=== PATIENT | female | born 1990 | race Caucasian/White ===

== ENCOUNTER 2025-01-24 18:26 | Emergency (ER) | payer BC, SELFPAY ==
--- NOTE | ~2025-01-24 | XR_ITS ---
XR wrist RT 2V Ordering provider: Ángela Beltran PA-C History: . fall, pain, deformity . Comparison: None. FINDINGS: BONES: Comminuted fracture of the distal right radius with posterior angulation. JOINT SPACES: Normal. SOFT TISSUES: Normal. IMPRESSION: Comminuted fracture of the distal radius Reviewed, dictated and finalized at location A.
[2025-01-24 18:27] VITALS: BP 113/91; PULSE 77; RESP 18; TEMP 36.6; O2SAT 98
--- NOTE | 2025-01-24 19:06 | ED.UPPEXIN ---
HPI - Extremity Injury (Upper) General Chief Complaint: Extremity Injury, Upper Stated Complaint: wrist fx Source: patient Mode of arrival: EMS Limitations: no limitations History of Present Illness HPI narrative: Patient is a 34-year-old female who presents the ED via EMS with report of right wrist pain. Patient reports she was attempting to pull open her garage door with a pull string when the string snapped and she fell backwards, attempting to catch herself with her right wrist. She complains of severe pain to her right wrist. Deformity noted. Placed in splint by EMS. Patient denies any other areas of pain. Denies R elbow or shoulder pain. Denies head injury or LOC. Denies any numbness or tingling. Related Data Allergies Allergy/AdvReac Type Severity Reaction Status Date / Time bacitracin (From Allergy Unknown Hives Verified 01/24/25 18:39 Polysporin(bacitracin base)) Penicillins Allergy Unknown Unknown Verified 01/24/25 18:39 polymyxin B (From Allergy Unknown Hives Verified 01/24/25 18:39 Polysporin(bacitracin base)) Review of Systems Review of Systems: All systems reviewed & are unremarkable except as noted in HPI. All systems reviewed & are unremarkable except as noted in HPI and below Exam Narrative: GENERAL: Uncomfortable appearing, well-nourished, non-toxic, in no acute distress. HEAD: Normocephalic, atraumatic. RESPIRATORY: Airway patent, respirations nonlabored. CARDIOVASCULAR: Regular rate and rhythm. Radial pulses strong and easily palpable. MUSCULOSKELETAL: Limited range of motion of right wrist due to pain. Able to wiggle fingers. Sensation intact. Capillary refill intact. Tenderness to palpation over distal radius region with swelling noted. No wounds. No tenderness over right elbow, right shoulder. SKIN: Warm, dry, normal color. NEURO: A&O X3. Speech clear. Cranial nerves II-XII grossly intact. Steady gait. No ataxic movements. PSYCHIATRIC: Appropriate mood and affect. Normal interaction. Course Vital Signs Vital signs: Vital Signs Temperature 97.8 F 01/24/25 18:27 Pulse Rate 77 01/24/25 18:27 Respiratory Rate 18 01/24/25 18:27 Blood Pressure 113/91 H 01/24/25 18:27 Pulse Oximetry 98 01/24/25 18:27 Oxygen Delivery Room Air 01/24/25 18:27 Temperature 97.8 F 01/24/25 18:27 Pulse Rate 77 01/24/25 18:27 Respiratory Rate 18 01/24/25 18:27 Blood Pressure 113/91 H 01/24/25 18:27 Pulse Oximetry 98 01/24/25 18:27 Oxygen Delivery Room Air 01/24/25 18:27 MDM - Extremity Injury (Upper) MDM Narrative Medical decision making narrative: Patient presented to ED status post ground level mechanical fall at home, FOOSH, pain to right wrist. Vital signs are stable upon arrival. Patient denies any other injuries. Denies any head injury or LOC. Patient?s injury is consistent with musculoskeletal etiology. No signs of neurologic or vascular compromise on physical examination. Compartments are soft without signs of compartment syndrome. XR of right wrist showing comminuted distal radius fracture. Pain is consistent with exam and injury. Patient is felt to be stable for discharge home and further outpatient management and treatment. Placed in a short-arm volar splint in the ED. Given sling for comfort and support. Advised to follow-up with orthopedics for further evaluation of fracture. Patient given prescription for pain medication. Discussed rice therapy, strict return precautions. She agrees with plan. Discharged in stable condition. Medical Records Attestation: I reviewed the patient's medical records. Imaging Data Attestation: I personally reviewed and interpreted this imaging study as follows: Radiologist's impression: ITS Impressions Wrist X-Ray 01/24/25 19:01 IMPRESSION: Comminuted fracture of the distal radius Discharge Plan Discharge Clinical Impression: Fall from ground level Fracture of distal end of radius Qualifiers: Encounter type: initial encounter Fracture type: closed Fracture morphology: Colles' Laterality: right Qualified Code(s): S52.531A - Colles' fracture of right radius, initial encounter for closed fracture Patient Disposition: Home, Self-Care Condition: Stable Instructions: Antibiotic Form, Wrist Fracture in Adults (ED), How to Use a Sling (ED), Splint Care (ED) Additional Instructions: You will need to follow-up with orthopedics for further evaluation of your fracture. Call office to make appointment. Wear splint until seen by orthopedics. Recommend frequent icing to wrist, elevation of wrist, Tylenol and ibuprofen as needed for pain. [place] as needed for more severe pain. Return to the ED if you experience worsening or severe pain, recurrent injury, severe swelling, numbness, or any other symptoms of concern. Patient Language: Maldivian Prescriptions: New hydrocodone-acetaminophen 5-325 mg tablet 1 tablet PO Q6H PRN (Reason: pain) Qty: 15 0RF Follow-up/Referrals: James Martinez MD [Physician] - (ORTHOPEDICS) UNKNOWN,DOCTOR [Primary Care Provider] - Time of Disposition: 20:23
--- OUTSIDE RECORDS SUMMARY | 2025-01-24 19:13 | XMS_ITS | Encounter Summary ---
Author Organization [facility] Address [address] [place], [place] [address] [address] Care Team Providers Care Guest Relations Receptionist Name Role Phone Mar Lane MD Primary Care Pr ovider Unavailable Reason for Visit * Reason Onset Date Comments General 05/21/2024 Encounter Details Date Type Department Care Team (Late st Contact Info) Description 05/21/2024 Telephone [facility] - Dermatology [address] [place] [address], [place] [id number] Dixon Ac MD [address] [place] [address] [address] [place] [address] General Social History Tobacco Use Types Packs/Day Years Used Date Smoking Tobacco: Never Smokeless Tobacco: Never Alcohol Use Standard Drinks/Week Comments Yes 0 (1 standard drink = 0.6 oz pur e alcohol) Sex and Gender Information Value Date Recorded Sex Assigned at Not on file Gender Identity Not on file Sexual Orientation Not on file documented as of this encounter Miscellaneous Notes * Telephone Encounter - Blue Diaz - 05/21/2024 3:19 PM CDT Current Provider: Osorio Reason for Call: pts member id was entered incorrectly which caused her insur to reject. Insur infohas now been updated.Pt has been sent to collections and the claim needs to be recalled. Invoice # [id number] Patient Call Back Number: [phone] documented in this encounter Plan of Treatment Not on file documented as of this encounter Visit Diagnoses Not on filedocumented in this encounter Care Teams Guest Relations Receptionist Relationship Specialty Start Date End Date Mar Lane MD PCP - General 12/01/22 documented as of this encounter
--- OUTSIDE RECORDS SUMMARY | 2025-01-24 19:13 | XMS_ITS | Patient Health Summary ---
Author Organization [facility] Address [address] [place] [address] Care Team Providers Care Acting Teacher Name Role Phone Mar Lane MD Primary Care Pr ovider Unavailable Note from [facility],non-owned Affiliates and Associated Physician Practices is amultiple site organization consisting of ambulatory clinics and hospital sitesin [place], [place], [place] and [place]. This disclosure is being madepursuant to the Care Everywhere program and may not contain all information available regarding this patient. Last updated 18.[facility] Allergies * Zpzhwbtt-Pmphbxcrbk-Mzqdftjpd(Rash) -Medium Criticality * Penicillins(Itching) Medications * Be aware that medications may not be up to date on this document. Alwaysverify current medications with the patient. * Multiple Vitamins-Minerals (MULTIVITAMIN GUMMIES WOMENS PO) Take by mouth once daily Active Problems Problem Noted Date Diagnosed Date Well woman exam with routine gynecological exam 03/20/2023 Family history of melanoma 12/16/2022 Other viral warts 12/16/2022 Seborrheic keratosis 12/16/2022 Solar lentiginosis 12/16/2022 Melanocytic nevi of trunk 12/16/2022 Anemia 12/28/2021 Low serum vitamin B12 12/28/2021 Lymphadenopathy 03/17/2020 Social History Tobacco Use Types Packs/Day Years Used Date Smoking Tobacco: Never Smokeless Tobacco: Never Tobacco Cessation:Counseling Given: Not Answered Alcohol Use Standard Drinks/Week Comments Yes 0 (1 standard drink = 0.6 oz pur e alcohol) Sex and Gender Information Value Date Recorded Sex Assigned at Not on file Gender Identity Not on file Sexual Orientation Not on file Last Filed Vital Signs Vital Sign Reading Time Taken Comments Blood Pressure 121/82 03/20/2023 2:03 PM CDT Pulse - - Temperature - - Respiratory Rate - - Oxygen Saturation - - Inhaled Oxygen Concentration - - Weight 88.9 kg (196 lb) 03/20/2023 2:03 PM CDT Height 177.8 cm (5' 10 ) 03/20/2023 2:03 PM CDT Body Mass Index 28.12 03/20/2023 2:03 PM CDT Procedures * AR DESTRUCT BENIGN LESION, 1-14(Performed 12/19/2023) Performed for Other viral warts * PAP IMAGE-GUIDED W HPV(Performed 03/20/2023) Performed for Well woman exam with routine gynecological exam * HPV DETECTION HIGH RISK JOSE GUADALUPE(Performed 03/20/2023) Performed for Well woman exam with routine gynecological exam * AR DESTRUCT BENIGN LESION, 1-14(Performed 12/16/2022) Performed for Other viral warts Results * AR DESTRUCT BENIGN LESION, 1-14 (12/19/2023 4:28 PM CENTRAL COMMUNICATIONS SPECIALIST) Narrative Dixon Ac MD - 12/19/2023 4:28 PM CENTRAL COMMUNICATIONS SPECIALIST Dixon Ac MD 12/19/2023 4:28 PM Procedure: liquid nitrogen/cryotherapy Liquid nitrogen was applied with the spray cannister to the affected skin lesion(s). The expected reaction ranges from minimal changes to scabbing, crust, blistering, or swelling, which can be painful. Color changes different from the surrounding skin are expected and can be either honey processor or darker--this can sometimes take a long time to fully resolve, and in some cases, it may not ever fully look like the surrounding skin--there is a delicate balance between freezing hard enough for efficacy and such side effects that is different for different people. There is a small risk of infection similar to any time there is a break in the skin. Blister/wound care discussed, handout given. Return if lesions fail to fully resolve. Verbal consent obtained prior to any procedures being done. Dixon Ac MD PROCEDURE/MINOR SURG ICAL ORDERABLES * HPV DETECTION HIGH RISK JOSE GUADALUPE (03/20/2023 2:36 PM CDT) High Risk Human Papilloma Result Not detected Not detected 03/22/2023 2:40 PM CDT [facility] High Risk Human Papilloma Interp 03/22/2023 2:40 PM CDT [facility] Comment:High Risk Human Van lloma Virus was Not Detected. Pathology/Cytolo gy MISCELLANEOUS SAMPLES / Unknown 03/20/2023 2:36 PM CDT 03/21/2023 12:37 PM CDT Narrative [facility] - 03/22/2023 2:40 PM CDT Nucleic acid isolated from the specimen was analyzed with a nucleic acid amplification test (FDA approved Gen-Probe HPV Assay) to detect high risk human papilloma virus (Types: 16, 18, 31, 33, 35, 39, 45, 51, 52, 56, 58, 59, 66, and 68). The reference range is Not Detected . Comment: These test results should not be used as the sole basis for clinical assessment and treatment of patients. These results should always be correlated with other available data (cytology, histology, and clinical information). Emilia MCCOY [facility] - MICROBIOLOGY ORDERABLES Performing Organization Address City/State/[facility] Co de Phone Number [facility] [address] [phone] * PAP IMAGE-GUIDED W HPV (03/20/2023 2:36 PM CDT) Case Report Gynecologic Cytology Report Case: [id number] Authorizing Provider: Emilia Robin APRN-CNP Collected: 03/20/2023 02:36 PM Ordering Location: [facility] Obstetrics Received: 03/21/2023 12:37 PM [facility]cology [facility] Women[facility] First Screen: Iftikhar Davis Specimen: THINPREP - IMAGE GUIDED, Cervix/Endocervix 03/24/2023 1:16 PM CDT [facility] LMP 4-25-23 03/24/2023 1:16 PM CDT [facility] Menstrual Status None Applicable 10/2023 1:16 PM CDT [facility] Specimen Adequacy Satisfactory for evaluation, endocervical/trans formation zone component absent. 03/24/2023 1:16 PM CDT [facility] Categorization Negative for intraepithelial lesion or malignancy. 03/24/2023 1:16 PM CDT [facility] Interpretation INFORMATION SYSTEMS AUDITOR Negative for intraepithelial lesion or malignancy. 03/24/2023 1:16 PM CDT [facility] Pap Footnote The Pap Smear is a screening test. False positive and false negative results occur. Negative results do not preclude abnormalities, thus clinical correlation is required. This specimen was evaluated by the [employer] System along with an additional manual rescreening by a snipper and/or pathologist. 03/24/2023 1:16 PM CDT [facility] Embedded Images 1:16 PM CDT [facility] Pathology/Cytolo gy MISCELLANEOUS SAMPLES / Unknown 03/20/2023 2:36 PM CDT 03/21/2023 12:37 PM CDT Emilia Robin CREDIT OPERATIONS SPECIALIST-POWDERED SUGAR SUPERVISOR LAB - PATHOLOGY/CY TOLOGY ORDERABLES Performing Organization Address City/State/[facility] Co de Phone Number [facility] [address] [phone] * AR DESTRUCT BENIGN LESION, 1-14 (12/16/2022 1:48 PM CENTRAL COMMUNICATIONS SPECIALIST) Narrative Dixon Ac MD - 12/16/2022 1:48 PM CENTRAL COMMUNICATIONS SPECIALIST Dixon Ac MD 12/16/2022 1:48 PM Procedure: liquid nitrogen/cryotherapy Liquid nitrogen was applied with the spray cannister to the affected skin lesion(s). The expected reaction ranges from minimal changes to scabbing, crust, blistering, or swelling, which can be painful. Color changes different from the surrounding skin are expected and can be either honey processor or darker--this can sometimes take a long time to fully resolve, and in some cases, it may not ever fully look like the surrounding skin--there is a delicate balance between freezing hard enough for efficacy and such side effects that is different for different people. There is a small risk of infection similar to any time there is a break in the skin. Blister/wound care discussed, handout given. Return if lesions fail to fully resolve. Verbal consent obtained prior to any procedures being done. Dixon Ac MD PROCEDURE/MINOR SURG ICAL ORDERABLES Care Teams Acting Teacher Relationship Specialty Start Date End Date Devasenatst. francis hospitalMar dial MD PCP - General 12/01/22
--- OUTSIDE RECORDS SUMMARY | 2025-01-24 19:13 | XMS_ITS | Referral Summary ---
Author Organization [facility] Address [address] [place] [place] [address] Care Team Providers Care Drill Press Set Up Operator Name Role Phone Mar Lane MD Primary Care Pr ovider Unavailable Source Comments [facility],non-owned Affiliates and Associated Physician Practices is amultiple site organization consisting of ambulatory clinics and hospital sitesin [place], [place], [place] and [place]. This disclosure is being madepursuant to the Care Everywhere program and may not contain all information available regarding this patient. Last updated 18.[facility] [employer] Allergies Active Allergy Reactions Criticality Noted Date Comments Zmdpudpa-Agzrtswhhy-Fjiahvfos Rash Medium 2022 Penicillins Itching 12/16/2022 Medications * Be aware that medications may not be up to date on this document. Alwaysverify current medications with the patient. Medication Sig Dispensed Refills Start Date End Date Status Multiple Vitamins-Minerals (MULTIVITAMIN GUMMIES WOMENS PO) Take by mouth once daily Active Active Problems Problem Noted Date Diagnosed Date [...] Mass Index 28.12 03/20/2023 2:03 PM CDT Plan of Treatment Not on file Procedures Procedure Name Priority Date/Time Associated Diagnosis Comments HPV DETECTION HIGH RISK JOSE GUADALUPE Routine 03/20/2023 2:36 PM CDT Well woman exam with routine gynecological exam from Last 3 Months or Most Recently Relevant to Health Maintenance Results * HPV DETECTION HIGH RISK JOSE GUADALUPE (03/20/2023 2:36 PM CDT) High Risk Human Papilloma Result Not detected Not detected 03/22/2023 2:40 PM CDT [facility] High Risk Human Papilloma Interp 03/22/2023 2:40 PM CDT [facility] Comment:High Risk Human Van lloma Virus was Not Detected. Pathology/Cytolo gy MISCELLANEOUS SAMPLES / Unknown 03/20/2023 2:36 PM CDT 03/21/2023 12:37 PM CDT Narrative [facility] - 03/22/2023 2:40 PM CDT [...] data (cytology, histology, and clinical information). Emilia Robin FLOORING MACHINE OPERATOR-OYSTER WASHER LAB - MICROBIOLOGY ORDERABLES [facility] [address] [place], [place] [address] [phone] from Last 3 Months or Most Recently Relevant to Health Maintenance Care Teams Drill Press Set Up Operator Relationship Specialty Start Date End Date Mar Lane MD PCP - General 12/01/22
--- OUTSIDE RECORDS SUMMARY | 2025-01-24 19:13 | XMS_ITS | Clinical Summary ---
Author Organization [facility] Address [address] [place] [address] Care Team Providers Care Patrol Captain Name Role Phone Mar Lane MD Primary Care Pr ovider Unavailable Source Comments [facility],non-owned Affiliates and Associated Physician Practices is amultiple site organization consisting of ambulatory clinics and hospital sitesin [place], [place], [place] and [place]. This disclosure is being madepursuant to the Care Everywhere program and may not contain all information available regarding this patient. Last updated 18.[facility] [employer] Allergies Active Allergy Reactions Criticality Noted Date Comments Hembtqrh-Wgejzixepm-Cswfzdziz Rash Medium 2022 Penicillins Itching 12/16/2022 Medications [...] Low serum vitamin B12 12/28/2021 Lymphadenopathy 03/17/2020 Family History Medical History Relation Name Comments Cancer - Skin, Melanoma Father Cancer - Skin, Non Melanoma Maternal Grandfather None Known Mother Relation Name Status Comments Father Alive Maternal Grandfather Maternal Grandmother Mother Alive Paternal Grandfather Paternal Grandmother Social History Tobacco Use Types Packs/Day Years [...] 03/20/2023 2:03 PM CDT Plan of Treatment Health Maintenance Due Date Last Done Comments HIV SCREENING 2003 HEPATITIS C SCREENING 07/23/2006 DTAP/TDAP/TD VACCINES (1 - Tdap) 2007 HEPATITIS B VACCINE (1 of 3 - 19+ 3-dose series) 2007 COVID-19 VACCINE ( - 2023-2 5 season) 2024 03/12/2021, 02/16/2021 INFLUENZA VACCINE (#1) 2024 DEPRESSION SCREENING 11/13/2024 PAP with HPV 03/20/2028 03/20/2023 ZOSTER VACCINE (1 of 2) 2038 HIB VACCINE Aged Out No longer eligi ble based on patient's age to complete this topic HPV VACCINE Aged Out No longer eligi ble based on patient's age to complete this topic MENINGOCOCCAL (Group B) VACCINE SHARED DECISION-MAKING Aged Out No longer eligible based on patient's age to complete this topic MENINGOCOCCAL GROUPS A/C/Y/W VACCINE Aged Out No longer eligible b ased on patient's age to complete this topic PNEUMOCOCCAL VACCINE Aged Out No long er eligible based on patient's age to complete this topic Procedures Procedure Name Priority Date/Time Associated Diagnosis [...] (cytology, histology, and clinical information). Emilia Robin RELIGION INSTRUCTOR-ART CONSERVATOR LAB - MICROBIOLOGY ORDERABLES [facility] [address] [phone] from Last 3 Months or Most Recently Relevant to Health Maintenance Care Teams Patrol Captain Relationship Specialty Start Date End Date DevasenatMar pacheco MD PCP - General 12/01/22
--- OUTSIDE RECORDS SUMMARY | 2025-01-24 19:13 | XMS_ITS | Encounter Summary ---
Author Organization [facility] Address [address] [place] [address] Care Team Providers Care Mini Bar Attendant Name Role Phone Twan Ospina MD Primary Care Provider [phone] Encounter Details Date Type Department Care Team (Latest Contact Info) Description 01/20/2025 [facility]oot[facility] Message [facility] [place] [address] [address] [place] [address] Twan Ospina MD [facility] [address] Beta nela question Social History Tobacco Use Types Packs/Day Years Used Date Smoking Tobacco: Never Smokeless Tobacco: Never Comments:Counseled by Dr. Delphine mcdonough. Alcohol Use Standard Drinks/Week Comments Yes 6.7 (1 standard drink = 0.6 oz p ure alcohol) PHQ-2 Answer Date Recorded Patient Health Questionnaire-2 Score 0 12/24/2024 Comments No Sex and Gender Information Value Date Recorded Sex Assigned at Female 12/14/2024 8:26 AM TELEPATHIST Legal Sex Female 8:50 AM TELEPATHIST Gender Identity Not on file Sexual Orientation Not on file documented as of this encounter Plan of Treatment Upcoming Encounters Date Type Department Care Team (Late st Contact Info) Description 08/15/2025 8:40 AM CDT [facility] [place] [address] [address] [place] [address] Twan Ospina MD [address] [phone] documented as of this encounter Visit Diagnoses Not on filedocumented in this encounter Additional Health Concerns Assessment Noted Time PHQ-9 Depression Total Score: 2 12/24/19 25 4:29 PM TELEPATHIST documented as of this encounter Care Teams Mini Bar Attendant Relationship Specialty Start Date End Date Twan Ospina MD [facility] [address] PCP - General INTERNAL MEDICINE 04/17/23 documented as of this encounter
--- OUTSIDE RECORDS SUMMARY | 2025-01-24 19:13 | XMS_ITS | Continuity of Care Document ---
Author Organization [employer] Address [address] [place] [address] Phone Care Team Providers Care Choir Leader Name Role Phone Sarmad PT, DPT, Izabella Unavailable Unavai lable Procedures Procedure Date PT Re-Evaluation Therapeutic Activities Neuromuscular Re-Ed Therapeutic Exercise Manual Therapy Manual Therapy Therapeutic Activities Therapeutic Exercise Neuromuscular Re-Ed Manual Therapy Therapeutic Exercise Therapeutic Activities Neuromuscular Re-Ed Therapeutic Exercise Manual Therapy Manual Therapy Therapeutic Activities Therapeutic Exercise Neuromuscular Re-Ed Manual Therapy Neuromuscular Re-Ed Therapeutic Activities Therapeutic Exercise Neuromuscular Re-Ed Therapeutic Activities Therapeutic Exercise Manual Therapy Therapeutic Activities Manual Therapy Neuromuscular Re-Ed Therapeutic Exercise PT Evaluation Low Complexity Free Assessment Advance Directives Directive Yes / No Effective Date File Name No Information Encounters Encounter Description Practice Location Reason(s) For Visit Diagnoses Date Provider Providers Copied on Encounter [facility], [address] [address], [place], [place], [id number], tel:[phone] [facility] No Information Sarmad Parekh. . Referring Provider: Access Direct. [facility], [address] [address], [place], [place], [id number], tel:[phone] [facility] No Information Orlando Cabello. . Referring Provider: [facility]. [facility], [address] [address], [place], [place], [id number], tel:[phone] [facility] No Information Aba Crandall. . Referring Provider: [facility]. [facility] [address], [place], [place], [id number], tel:[phone] [facility] No Information Buquiz Raz. . Referring Provider: [facility]. [facility], [address] [address], [place], [place], [id number], tel:[phone] [facility] No Information Gamboa Juve. . Referring Provider: [facility]. [facility] [address], [place], [place], [id number], tel:[phone] [facility] No Information Sarmad Parekh. . Referring Provider: [facility]. [facility], [address] [address], [place], [place], [id number], tel:[phone] [facility] No Information Sarmad Parekh. . Referring Provider: [facility]. [facility], [address] [address], [place], [place], [id number], tel:[phone] [facility] No Information Orlando Cabello. . Referring Provider: [facility]. [facility], [address], [place], [place], [id number], [place] tel:[phone] [facility] No Information Sarmad Izabella. . Referring Provider: Physician Screen. Family History Family Member Type Diagnosis Age At Onset No Information Payers Payer name Insurance type Covered green party ID Authorjanay bosefallon(s) [facility] [id number] Social History Type Description Quantity Date Captured Comments Alcohol Use Details Unknown Caffeine Use Details Unknown Tobacco Use Status Current non-smoker Smoking Status Never smoker Non-Smoking Tobacco Use Details : No Details Available : No Details Available Sex Female Chief Complaint And Reason For Visit No Information Reason For Referral Reason For Referral No Information Plan Of Treatment Date Type Action Status Referral Ordered: Referrals: Specialist. Evaluate and Treat (related to Adjustment disorder with depressed mood) ordered Referral Ordered: Depression: Depression management program timeframe: 1 Day. (related to Depression) ordered Referral Ordered: Clinical Psychology (related to Depression) ordered History Of Present Illness Encounter Date Complaint History Of Prese nt Illness No Information Functional Status Date Functional Assessmen t No Information Instructions Date Instruction Additional Infor mation No Information Assessments Type Assessment Date No Information Patient Care Teams Name Effective Dates (start - stop) Status Members No Information
--- OUTSIDE RECORDS SUMMARY | 2025-01-24 19:13 | XMS_ITS | Patient Health Record ---
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 Social History Tobacco Use: Social History Observation Description Date Details (start date - stop date) Never Smoker NA - NA Tobacco Use/Smoking Question Answer Notes Are you a nonsmoker Section Notes: ETOH: socially ETOH: socially non smoker Plan Of Treatment Pending Test Test Name Order Date SARS CoV 2 RNA(COVID 19), QUALITATIVE NA AT ([facility]) 07/31/2020 SARS CoV 2 RNA(COVID 19), QUALITATIVE NA AT 07/16/2020 Insurance Providers Payer Name Payer Address Payer Phone Subscriber Number Group Number Insured Name Patient Relationship to Insured Coverage Start Date Coverage End Date [employer] [address] [place] [address] [id number] José Miguel Hernandez Spouse - patient is the spouse of the insured
--- OUTSIDE RECORDS SUMMARY | 2025-01-24 19:13 | XMS_ITS | Clinical Summary ---
Author Organization [facility] Address Formerly [facility] [place] [address] Care Team Providers Care Doula Name Role Phone Twan Ospina MD Primary Care Provider [phone] Allergies Active Allergy Reactions Criticality Noted Date Comments Bacitracin Hives,Itching 12/24/2024 Cefprozil Unknown 10/09/2024 Cephalosporins Hives 10/17/2017 Penicillins Hives,Rash Low 11/13/1991 Medications Multiple Vitamin (MULTIVITAMIN OR) multivitamin Active Probiotic Product (PROBIOTIC OR) Activ e SODIUM FLUORIDE 5000 PPM 1.1 % Paste 12/24/19 25 Active Lisdexamfetamine Dimesylate 10 MG Chew TabIndications:At tention or concentration deficit Chew 5 mg by mouth daily. 15 tablet 12/24/19 25 Active Active Problems Problem Noted Date Diagnosed Date Low serum vitamin B12 12/28/2021 Anemia 12/28/2021 Lymphadenopathy 03/17/2020 Depression Anxiety Encounters Date Type Department Care Team Description 01/20/2025 [facility] [place] [address] [address] [facility] [address] [place] [address] Twan Ospina MD Beta nela question 12/30/2024 [facility]phone [facility] [place] [address] [facility] [address] [place] [address] Twan Ospina MD Results 12/28/2024 MyChart Message [facility] [place] [address] [facility] [address] [place] [address] Twan Ospina MD TB test 12/27/2024 8:00 AM FILL PLANT OPERATOR Allied Health/Nurse Visit [facility] - [address] [place] [address] Twan Ospina MD Allied Health Visit (Tb read ) 12/27/2024 Travel 12/24/2024 3:20 PM FILL PLANT OPERATOR Office Visit [facility] - [address] [place] [address] Twan Ospina MD Follow Up; Anxiety; Depression; Attention Deficit Disorder 12/24/2024 Travel 12/14/2024 8:28 AM FILL PLANT OPERATOR - 12/14/2024 11:59 PM FILL PLANT OPERATOR Hospital Encounter [facility] [place] [address] Twan Ospina MD Discharge Disposition: Home or Self Care (Routine Discharge) 12/14/2024 Travel from Last 3 Months Immunizations Name Administration Dates Next Due Fluzone (IIV3, Trivalent, 0.5 ML Prefilled Syrin ge) 12/24/2024 PFIZER COVID-19 (ORIGINAL FO RMULATION, PURPLE CAP) mRNA, LNP-S, PF, 30 MCG/0.3 ML DOSE 03/12/2021,02/16/2021 Tdap (Generic) 01/30/2019 Family History Medical History Relation Comments Alcohol Abuse Father Alzheimers Father Early Hearing Loss Maternal Grandfather Early Hearing Loss Mother mild/moderate hearing loss Heart Disease Paternal Grandmother open heart surgery Relation Status Comments Father Maternal Grandfather Mother Paternal Grandmother Social History Tobacco Use Types Packs/Day Years Used Date Smoking Tobacco: Never Smokeless Tobacco: Never Tobacco Cessation:Counseling Given: Yes Comments:Counseled by Dr. Ospina. Alcohol Use Standard Drinks/Week Comments Yes 6.7 (1 standard drink = 0.6 oz p ure alcohol) PHQ-2 Answer Date Recorded Patient Health Questionnaire-2 Score 0 12/24/2024 Comments No Sex and Gender Information Value Date Recorded Sex Assigned at Female 12/14/2024 8:26 AM FILL PLANT OPERATOR Legal Sex Female 8:50 AM FILL PLANT OPERATOR Gender Identity Not on file Sexual Orientation Not on file Last Filed Vital Signs Vital Sign Reading Time Taken Comments Blood Pressure 130/82 12/24/2024 3:40 PM FILL PLANT OPERATOR Pulse 83 12/24/2024 3:40 PM FILL PLANT OPERATOR Temperature 36.2 C (97.2 F) 12/24/2024 3:40 PM FILL PLANT OPERATOR Respiratory Rate 18 12/24/2024 3:40 PM FILL PLANT OPERATOR Oxygen Saturation 98% 12/24/2024 3:40 PM FILL PLANT OPERATOR Inhaled Oxygen Concentration - - Weight 91.4 kg (201 lb 9.6 oz) 12/24/2024 3:40 P M FILL PLANT OPERATOR Height 177.8 cm (5' 10 ) 12/24/2024 3:40 PM FILL PLANT OPERATOR Body Mass Index 28.93 12/24/2024 3:40 PM FILL PLANT OPERATOR Plan of Treatment Upcoming Encounters Date Type Department Care Team (Late st Contact Info) Description 08/15/2025 8:40 AM CDT Office Visit [facility] - [place] [address] [address] [place] [address] Twan Ospina MD [address] [address] Health Maintenance Due Date Last Done Comments Hepatitis B Vaccines (1 of 3 - 19+ 3-dose series) 2007 COVID-19 Vaccine (2023-2 5 season) 2024 03/12/2021, 02/16/2021 Annual Physical 08/14/2025 08/14/2024, 11/18/2022 Cervical Cancer Screening Pa p Smear (Age 30 to 64) Every 3 Years 03/20/2026 03/20/2023, 11/09/2015 Cervical Cancer Screening Pa p with HPV Testing (Age 30 to 64) Every 5 Years 03/20/2028 03/20/2023, 03/04/2019, 11/09/2015 Cervical Cancer Screening wi th HPV 03/20/2028 DTaP, Tdap and Td Vaccines ( 2 - Td or Tdap) 01/30/2029 01/30/2019 Hepatitis C Completed 12/27/2021, 12/27/2021 Influenza Adult Completed 12/24/2024 PHQ-2 (Physician Jamul) Completed 12/24/2024 HPV Vaccines Aged Out No longer eligi ble based on patient's age to complete this topic Meningococcal B Vaccine Aged Out No l onger eligible based on patient's age to complete this topic Meningococcal Vaccine Aged Out No lauri devonte eligible based on patient's age to complete this topic Pneumococcal Vaccine: Pediatrics (0 to 5 Years) and At-Risk Patients (6 to 64 Years) Aged Out No longer eligible b ased on patient's age to complete this topic RSV Immunizations Under 20 Months Aged Out No longer eligible b ased on patient's age to complete this topic Procedures Procedure Name Priority Date/Time Associated Diagnosis Comments XR CHEST PA+LAT Routine 12/27/2024 9:18 AM FILL PLANT OPERATOR Visit for TB skin test TB INTRADERMAL TEST (BACK OFFICE) Routine 12/24/2024 4:19 PM FILL PLANT OPERATOR Screening-pulmonary TB HC GAMMAGLOBULIN Routine 12/14/2024 8:44 AM FILL PLANT OPERATOR Diarrhea, unspecified type FERRITIN Routine 12/14/2024 8:44 AM FILL PLANT OPERATOR Diarrhea, unspecified type IRON SAT PANEL (IRON,IBC,%SAT) Routine 12/14/2024 8:44 AM FILL PLANT OPERATOR Diarrhea, unspecified type VITAMIN B-12 Routine 12/14/2024 8:44 AM FILL PLANT OPERATOR Vitamin B 12 deficiency CBC W/DIFF AUTOMATED Routine 12/14/2024 8:44 AM FILL PLANT OPERATOR Annual physical exam Establishing care with new doctor, encounter for General medical exam COMPREHENSIVE METABOLIC PANEL Routine 12/14/2024 8:44 AM FILL PLANT OPERATOR Annual physical exam Establishing care with new doctor, encounter for General medical exam LIPID PANEL Routine 12/14/2024 8:44 AM FILL PLANT OPERATOR Annual physical exam Establishing care with new doctor, encounter for General medical exam Screening for hyperlipidemia TSH W/REFLEX Routine 12/14/2024 8:44 AM FILL PLANT OPERATOR Annual physical exam Establishing care with new doctor, encounter for General medical exam Screening for hypothyroidism HEMOGLOBIN, GLYCOSYLATED Routine 12/14/2024 8:44 AM FILL PLANT OPERATOR Annual physical exam Establishing care with new doctor, encounter for General medical exam Screening for diabetes mellitus HEP C SCANNED ORDERS Routine 12/27/2021 OUTSIDE CYTOPATH CERV/VAG INTERPRET (PAP) 03/04/2019 from Last 3 Months or Most Recently Relevant to Health Maintenance Results * XR CHEST PA+LAT (12/27/2024 9:18 AM FILL PLANT OPERATOR) Anatomical Region Laterality Modality Chest Radiographic Christi ging 12/27/2024 1:36 PM FILL PLANT OPERATOR Impressions 12/27/2024 1:36 PM FILL PLANT OPERATOR IMPRESSION: Normal chest Ordered By: TWAN OSPINA Interpreted By: Hal Sheriff MD, 12/27/2024 1:36 PM Narrative 12/27/2024 1:36 PM FILL PLANT OPERATOR [facility] [place] [address] 2 VIEWS OF THE CHEST Clinical history: Positive TB test Comparison: None 2 views of the chest demonstrate the cardiac silhouette to be normal in size and appearance. The pulmonary vasculature appears normal. The Lungs are clear. No consolidations or effusions are seen. Procedure Note Hal Sheriff MD - 12/27/2024 [facility] [place] [address] 2 VIEWS OF THE CHEST Clinical history: Positive TB test Comparison: None 2 views of the chest demonstrate the cardiac silhouette to be normal insize and appearance. The pulmonary vasculature appears normal. The Lungsare clear. No consolidations or effusions are seen. IMPRESSION: Normal chest Ordered By: TWAN OSPINA Interpreted By: Hal Sheriff MD, 12/27/2024 1:36 PM us Twan Ospina MD GENERAL IMAGING Final Result * TB INTRADERMAL TEST (BACK OFFICE) (12/24/2024 4:19 PM FILL PLANT OPERATOR) MM INDURATION 5mm PPD SKIN TEST OM NOT REQUIRED 12/24/2024 4:19 PM FILL PLANT OPERATOR us Twan Ospina MD MICROBIOLOGY - GENERAL ORDERABLE S Final Result * TSH W/REFLEX (12/14/2024 8:44 AM FILL PLANT OPERATOR) TSH 2.160 0.358 - 3.74 uIU/ML 12/14/2024 9:57 AM FILL PLANT OPERATOR [facility] Comment: HIGH DOSES OF BIOTIN MAY INTERFERE WITH THIS TEST RESULT. CORRELATION TO CLINICAL HISTORY AND PRESENTATION RECOMMENDED. FREE T4 NOT INDICATED 12/14/2024 8:44 AM FILL PLANT OPERATOR us Twan Ospina MD LABORATORY Final Result [facility] [address] [place] [address], [place] [phone] * HEMOGLOBIN, GLYCOSYLATED (12/14/2024 8:44 AM FILL PLANT OPERATOR) HGB A1C 4.6 <5.7 % 12/14/2024 11:14 AM FILL PLANT OPERATOR [facility] Comment: ADA GUIDELINES 2010 5.7 TO 6.4% INCREASED RISK OF DIABETES > OR = 6.5% CONSISTENT WITH DIABETES ESTIMATED AVG GLUCOSE 85 mg/dL 12/14/2024 11:14 AM FILL PLANT OPERATOR [facility] 12/14/2024 8:44 AM FILL PLANT OPERATOR us Twan Ospina MD LABORATORY Final Result [facility] [address] [place] [address], [place] [phone] * IRON SAT PANEL (IRON,IBC,%SAT) (12/14/2024 8:44 AM FILL PLANT OPERATOR) Pathologist [facility] IRON 62 50.0 - 170.0 MCG/DL 12/14/2024 10:36 AM FILL PLANT OPERATOR [facility] IRON BINDING CAPACITY 311 250 - 450 MCG/DL 12/14/2024 10:[address] [facility] IRON SATURATION 20 20 - 55 % 10:[address] [facility] 12/14/2024 8:44 AM FILL PLANT OPERATOR Twan Ospina MD LABORATORY Final Result [facility] [address] [place] [address], [place] [phone] * VITAMIN B-12 (12/14/2024 8:44 AM FILL PLANT OPERATOR) [facility] VITAMIN B12 S/P/B 926 254 - 1,320 PG/ML 12/14/2024 10:58 AM FILL PLANT OPERATOR [facility] 12/14/2024 8:44 AM FILL PLANT OPERATOR Twan Ospina MD LABORATORY Final Result [facility] [address] [place] [address], [place] [phone] * COMPREHENSIVE METABOLIC PANEL (12/14/2024 8:44 AM FILL PLANT OPERATOR) [facility] GLUCOSE 91 70 - 99 MG/DL 12/14/2024 9:57 AM FILL PLANT OPERATOR [facility] BUN 9 7 - 18 MG/DL 12/14/2024 9:[address] [facility] CREATININE S/P/B 0.74 0.55 - 1.02 MG/DL 12/14/2024 9:[address] [facility] SODIUM S/P/B 138 136 - 145 MMOL/L 12/14/2024 9:[address] [facility] POTASSIUM S/P/B 3.7 3.5 - 5.1 MMOL/L 12/14/2024 9:[address] [facility] CHLORIDE S/P/B 108 97 - 115 MMOL/L 12/14/2024 9:[address] [facility] CO2 25.1 21 - 32 MMOL/L 12/14/2024 9:[address] [facility] CALCIUM S/P/B 9.2 8.5 - 10.1 MG/DL 12/14/2024 9:[address] [facility] BILIRUBIN TOTAL S/P/B 0.6 0.2 - 1.2 MG/DL 12/14/2024 9:[address] [facility] Comment: THIS ASSAY IS NOT RECOMMENDED FOR PATIENTS UNDERGOING TREATMENT WITH ELTROMBOPAG DUE TO THE POTENTIAL FOR FALSELY ELEVATED RESULTS. TOTAL PROTEIN S/P/B 7.5 6.4 - 8.2 G/DL 12/14/2024 9:[address] [facility] ALBUMIN S/P/B 3.8 3.4 - 5.0 G/DL 12/14/2024 9:[address] [facility] AST 20 15 - 37 U/L 12/14/2024 9:[address] [facility] ALT 31 14 - 55 U/L 12/14/2024 9:[address] [facility] ALKALINE PHOSPHATASE S/P/B 59 50 - 136 U/L 12/14/2024 9:57 AM FILL PLANT OPERATOR [facility] ANION GAP 4.9 2 - 10 MMOL/L 12/14/2024 9:[address] [facility] BUN CREATININE RATIO 12.1 6 - 26 12/14/2024 9:[address] [facility] A/G RATIO 1.0 1.0 - 2.0 RATIO 12/14/2024 9:[address] [facility] GFR ESTIMATE >90 >90 ML/MIN/1.7 3 M2 12/14/2024 9:[address] [facility] Comment: NOTE: eGFR is not calculated for patients <18 years of age or gender unknown. This is an estimated GFR calculation using the new CKD EPI creatinine equation without race and so does not require a correction factor for race. This estimated GFR should not be used for calculating drug doses. 12/14/2024 8:44 AM FILL PLANT OPERATOR Twan Ospina MD LABORATORY Final Result [facility] [address] [place] [address], * (ABNORMAL) LIPID PANEL (12/14/2024 8:44 AM FILL PLANT OPERATOR) CHOLESTEROL 179 <200 MG/DL 12/14/2024 9:[address] [facility] TRIGLYCERIDES 61 <150 MG/DL 12/14/2024 9:[address] [facility] HDL 63 >40.0 MG/DL 12/14/2024 9:[address] [facility] LDL (CALCULATED) 104(H) <100 MG/DL 12/14/2024 9:[address] [facility] NON HDL CHOLESTEROL 116 <130 MG/DL 12/14/2024 9:[address] [facility] CHOL/HDL RATIO 2.8 0.0 - 4.5 12/14/2024 9:[address] [facility] VLDL CALCULATION 12 5 - 55 MG/DL 12/14/2024 9:[address] [facility] LIPID INTERPRETATION 12/14/2024 9:[address] [facility] Comment: [facility] REPORT RECOMMENDATIONS: ADULT CHILD LOW RISK: CHOLESTEROL <200 <170 TRIGLYCERIDE <150 --- HDL >=60 --- LDL <100 <110 BORDERLINE: CHOLESTEROL 200-239 170-199 TRIGLYCERIDE 150-199 --- HDL 40-59 --- LDL 100-159 110-129 HIGH RISK: CHOLESTEROL >=240 >=200 TRIGLYCERIDE >=200 --- HDL <40 --- LDL >=160 >=130 12/14/2024 8:44 AM FILL PLANT OPERATOR Twan Ospina MD LABORATORY Final Result [facility] [address] [place] [id number], [place] [phone] * CELIAC DISEASE ANTIBODY PANEL (12/14/2024 8:44 AM FILL PLANT OPERATOR) Additional Test Information REPORT 12/18/2024 12:01 PM FILL PLANT OPERATOR [facility] Comment: !Assay ! AGA ! AGA ! TTG ! DAKOTA ! TOTAL ! ! ! IgG ! IgA ! IgA ! IgA ! IgA ! !Result ! - ! - ! - ! - ! NORMAL! (EQ=equivocal, ND=not detected, N=not interpretable, D=deficient, TNP=not performed) Summary Interpretation: Results do not support a diagnosis of celiac disease. Please note that it is assumed that this patient has been on gluten sufficient diet before testing. IGA 139 47 - 310 mg/dL 12/18/2024 12:01 PM FILL PLANT OPERATOR [facility] DEAMIDATED GLIADIN IGG <1.0 <15.0 U/mL 12/18/2024 12:01 PM FILL PLANT OPERATOR [facility] Comment: Value Interpretation <15.0 Antibody not detected > or = 15.0 Antibody detected DEAMIDATED GLIADIN IGA <1.0 <15.0 U/mL 12/18/2024 12:01 PM FILL PLANT OPERATOR [facility] Comment: Value Interpretation <15.0 Antibody not detected > or = 15.0 Antibody detected TISSUE TRANSGLUTAMINASE IGA AB <1.0 <15.0 U/mL 12/18/2024 12:01 PM FILL PLANT OPERATOR [facility] Comment: Value Interpretation <15.0 Antibody not detected > or = 15.0 Antibody detected ENDOMYSIAL IGA Negative Negative 12/18/2024 12:01 PM FILL PLANT OPERATOR [facility] Comment: Test Performed by John Ferreira, [employer] [facility], [address] [place] [address] Romulo Contreras M.D., Ph.D., Director of Laboratories , [facility] [id number] 12/14/2024 8:44 AM FILL PLANT OPERATOR us Twan Ospina MD LABORATORY Final Result [facility] , * (ABNORMAL) CBC W/DIFF AUTOMATED (12/14/2024 8:44 AM FILL PLANT OPERATOR) WBC 5.93 4.5 - 11.0 x10'3/uL 12/14/2024 9:[address] [facility] RBC 4.02(L) 4.20 - 5.40 x10'6/uL 12/14/2024 9:[address] [facility] HGB 12.0 12.0 - 16.0 G/DL 12/14/2024 9:[address] [facility] HCT 36.1(L) 38.0 - 48.0 % 12/14/2024 9:[address] [facility] MCV 89.8 81.0 - 99.0 FL 12/14/2024 9:[address] [facility] MCH 29.9 27.0 - 31.0 PG 12/14/2024 9:[address] [facility] MCHC 33.2 32.0 - 36.0 G/DL 12/14/2024 9:[address] [facility] RDW 11.9 11.5 - 14.5 % 12/14/2024 9:[address] [facility] PLT 206 130 - 400 x10'3/uL 12/14/2024 9:[address] [facility] MPV 9.5 9.3 - 12.2 FL 12/14/2024 9:[address] [facility] DIFFERENTIAL TYPE AUTOMATED DIFFERENTIAL 12/14/2024 9:[address] [facility] NEUTROPHILS % 54.7 % 12/14/2024 9:[address] [facility] LYMPHOCYTES % 36.8 % 12/14/2024 9:[address] [facility] MONOCYTES % 5.2 % 12/14/2024 9:[address] [facility] EOSINOPHILS 2.4 % 12/14/2024 9:[address] [facility] BASOPHILS 0.7 % 12/14/2024 9:07 AM FILL PLANT OPERATOR [facility] IMMATURE GRANS % 0.2 % 12/14/19 9:07 AM FILL PLANT OPERATOR [facility] ABS. NEUTROPHILS 3.25 1.80 - 7.70 x10'3/uL 12/14/2024 9:[address] [facility] ABS. LYMPHOCYTES 2.18 1.00 - 4.80 x10'3/uL 12/14/2024 9:07 AM FILL PLANT OPERATOR [facility] ABS. MONOCYTES 0.31 0.24 - 0.86 x10'3/uL 12/14/2024 9:07 AM FILL PLANT OPERATOR [facility] ABS. EOSINOPHILS 0.14 0.04 - 0.36 x10'3/uL 12/14/2024 9:[address] [facility] ABS. BASOPHILS 0.04 0.01 - 0.08 x10'3/uL 12/14/2024 9:[address] [facility] ABS. IMMATURE GRANULOCYTES 0.01 0.00 - 0.49 x10'3/uL 12/14/2024 9:07 AM FILL PLANT OPERATOR [facility] 12/14/2024 8:44 AM FILL PLANT OPERATOR us Twan Ospina MD LABORATORY Final Result [facility] [address] [place] [address], * FERRITIN (12/14/2024 8:44 AM FILL PLANT OPERATOR) FERRITIN 42.7 8.0 - 388.0 NG/ML 12/14/2024 10:58 AM FILL PLANT OPERATOR [facility] 12/14/2024 8:44 AM FILL PLANT OPERATOR us Twan Ospina MD LABORATORY Final Result [facility] [address] [place] [address], * HEP C SCANNED ORDERS (12/27/2021) [facility] Scanned SCANNING Final Resu lt [facility] * PAP SMEAR WITH HPV (03/04/2019) 03/04/2019 [facility] Scanned SCANNING Final Resu lt from Last 3 Months or Most Recently Relevant to Health Maintenance Insurance [facility] Care Teams Doula Relationship Specialty Start Date End Date Twan Ospina MD [address] [facility] [address] [place] [address] PCP - General INTERNAL MEDICINE 04/17/23
[2025-01-24] MEDS: ACETAMINOPHEN 500 MG TABLET 1000 MG PO (19:53)
[2025-01-24] MEDS: oxyCODONE HCL (*CRX) 5 MG TAB IR PO (20:42)
== END 2025-01-24 21:33 | disposition home or self-care (01) ==
PROVIDERS: Emergency Provider Physician Assistant
DX: S52.531A Colles' fracture of right radius, initial encounter for closed fracture (principal); W18.30XA Fall on same level, unspecified, initial encounter
CPT/HCPCS: 29125; 73100; 96372; 99283; A9270